=== PATIENT | female | born 1995 | race Caucasian/White ===

== ENCOUNTER 2017-06-25 23:22 | Emergency (ER) | payer OTHER ==
[~2017-06-25] VITALS: Ht 167.6 cm; Wt 59.0 kg
[2017-06-26 00:15] LABS: HEMATOCRIT 33.7 % (36.0-46.0); MCH 28.9 PG (29.0-34.0); MCHC 35.3 G/DL (30.0-36.0); MCV 81.8 FL (83-99); MEAN PLAT.VOLUME 9.1 uM^3 (9.5-12.4); PLATELET COUNT 227 K/uL (156-360); RBC DIS.WIDTH-CV 12.6 % (11.8-14.6); RBC DIS.WIDTH-SD 37.5 % (39-53); RED BLOOD COUNT 4.12 M/uL (3.80-5.20); WHITE BLOOD COUNT 7.9 K/uL (4.1-10.2)
[2017-06-26 00:23] LABS: CHLORIDE 111 mEq/L (99-109); POTASSIUM 3.3 mEq/L (3.7-5.4); SODIUM 141 mEq/L (136-147)
[2017-06-26 00:25] LABS: GLUCOSE 100 mg/dL (70-99)
[2017-06-26 00:27] LABS: ANION GAP 13 MEQ/L (2-14)
[2017-06-26 00:28] LABS: SERUM ETHYL ALCOHOL 144 mg/dL
[2017-06-26 00:29] LABS: GFR ESTIMATE (CALCULATED) > 59 mL/min/
[2017-06-26 00:30] LABS: UREA NITROGEN (BUN) 15 mg/dL (9-23)
[2017-06-26 00:55] LABS: QUANTITATIVE HCG < 4.0 MIU/ML
[2017-06-26] MEDS ORDERED: ZOFRAN4 MG PO (01:40)
[2017-06-26 01:45] LABS: ADD MIUA? YES; BILIRUBIN NEGATIVE; BLOOD LARGE; COLOR YELLOW ((YELLOW)); GLUCOSE (STRIP) NEGATIVE; KETONES NEGATIVE; LEUKOCYTES NEGATIVE; NITRITE NEGATIVE; PROTEIN (STRIP) >=500; SPECIFIC GRAVITY 1.014 (1.000-1.030); UROBILINOGEN 0.2 MG/DL (0.2-1.0)
[2017-06-26 01:50] LABS: BACTERIA NONE SEEN /HPF; EPITHELIAL CELLS 1+ /HPF; HYALINE CASTS 0-5 /LPF; MUCUS TRACE /LPF; RED BLOOD CELLS TNTC /HPF (0-5); UCUL ADDED? YES
[2017-06-26 01:56] LABS: AMPHETAMINE NEGATIVE (500 ng/mL); BARBITURATES NEGATIVE (200 ng/mL); BENZODIAZEPINES NEGATIVE (150 ng/mL); COCAINE NEGATIVE (150 ng/mL); INTERNAL CONTROLS VALID? YES; METHADONE NEGATIVE (200 ng/mL); METHAMPHETAMINE NEGATIVE (500 ng/mL); OPIATES (MORPHINE) NEGATIVE (100 ng/mL); OXYCODONE NEGATIVE (100 ng/mL); PHENCYCLIDINE NEGATIVE (25 ng/mL); PROPOXYPHENE NEGATIVE (300 ng/mL); THC CANNABINOIDS NEGATIVE (50 ng/mL); TRICYCLIC ANTIDEPRESSANTS NEGATIVE (300 ng/mL)
[2017-06-26 02:19] VITALS: BP 123/65
== END 2017-06-26 02:30 | disposition home or self-care (01) ==
LOC: EDBD 23:22 → EME 23:22
PROVIDERS: Emergency Medicine
DX: F10.129 Alcohol abuse with intoxication, unspecified (principal); R11.2 Nausea with vomiting, unspecified; R06.00 Dyspnea, unspecified
CPT/HCPCS: 80048; 81003; 84702; 85027; 87086; 99281; 99285; G0480; J2405; J7120